=== PATIENT | female | born 1955 | race Caucasian/White ===

== ENCOUNTER 2019-10-31 18:11 | Inpatient (IN) ==
--- NOTE | 2019-10-31 18:32 | Emergency Department Note ---
History of Present Illness General Chief complaint: Illness Stated complaint: NAUSEA, VOMITING, FEVER Source: patient History of Present Illness Provider complaint: Malaise and fever Onset (ago): day(s) Location: head Severity: moderate Pain Consistency: + intermittent Current Pain Intensity: 10 (T-max 102.4) Quality: + other (Fatigue) Relieved By: + none Associated symptoms: + cough (Mild), + fever/chills, + malaise, + nausea/vomiting and + shortness of breath; no chest pain This is a 64-year-old female brought in by EMS for evaluation of illness for the past 2 days. She has been feeling fatigued and malaise with fevers. Her temperature was 102.4 just prior to arrival. She does complain of some shortness of breath and has had a mild cough. She states that she does smoke. She denies any known exposure to COVID-19. She denies any loss of smell or taste. She has had some nausea and vomiting of the past 2 days but denies abdominal pain or diarrhea. She denies any chest discomfort or pain. She did get Tylenol and normal saline IV prior to arrival via the ambulance. Home Medications Home Medications Medication Instructions Recorded Confirmed Type lisinopril 20 mg PO QAM 10/31/19 10/31/19 History metformin 1,000 mg PO BID 10/31/19 10/31/19 History rosuvastatin 40 mg PO QAM 10/31/19 10/31/19 History semaglutide [Ozempic] 0 mg SUBCUT FR 10/31/19 10/31/19 History warfarin 3 mg PO UD 10/31/19 10/31/19 History Allergies Allergy/AdvReac Type Severity Reaction Status Date / Time atorvastatin Allergy Unknown SEVERE Verified 10/31/19 21:12 MUSCLE PAIN Past Med/Surg History Medical History (Updated 10/31/19 @ 23:40 by Ander Longo MD) High cholesterol Hypertension Stroke Social History (Updated 10/31/19 @ 18:30 by Ander Longo MD) Smoking Status: Current every day smoker Tobacco Type: Cigarettes Cigarettes Per Day: 1 PPD; Second Hand Exposure: No; Do You Dip or Chew Tobacco: No; Tobacco Cessation Education Requested by Patient: No Hx Alcohol Use: Yes Alcohol type: beer Hx Substance Use: No Preferred Language: Haitian Communication Ability: Effective Pocket Builder Required: No Beliefs That Will Affect Care: None Current Living Situation: Spouse Other Information That Helps Us Care for You: No Feels Safe at Home: Yes Safety Concerns: Feels Safe At This Time Review of Systems See HPI for pertinent positives & negatives. and A total of 10 systems reviewed and were otherwise negative Physical Exam Vital Signs Vital Signs - 24 hr 10/31/19 18:12 10/31/19 19:00 10/31/19 19:01 Temperature 39.4 C H Temperature Source Rectal Pulse Rate 116 H 120 H 120 H Pulse Rate from SpO2 Sensor 121 H 121 H Pulse Rhythm Regular Pulse Strength Normal Respiratory Rate 25 H 29 H 22 Respiratory Effort / Characteristics Non-Labored Respiratory Depth Normal Respiratory Pattern Regular Blood Pressure 164/79 H 110/67 Blood Pressure Mean 107 80 Blood Pressure Position Lying Pulse Oximetry 97 96 96 Oxygen Delivery Method Nasal Cannula Oxygen Flow Rate 2 Sepsis Recent Fever Within 48 Hours Yes Sepsis New/Unexplained Change in Mental Status Yes Sepsis Action Taken by Nursing Physician Notified 10/31/19 19:15 10/31/19 19:18 10/31/19 19:24 Temperature Temperature Source Pulse Rate 117 H 119 H Pulse Rate from SpO2 Sensor 117 H 119 H Pulse Rhythm Pulse Strength Respiratory Rate 31 H 19 Respiratory Effort / Characteristics Non-Labored Respiratory Depth Respiratory Pattern Blood Pressure 122/74 Blood Pressure Mean 83 Blood Pressure Position Pulse Oximetry 96 96 Oxygen Delivery Method Oxygen Flow Rate Sepsis Recent Fever Within 48 Hours Sepsis New/Unexplained Change in Mental Status Sepsis Action Taken by Nursing 10/31/19 19:30 10/31/19 19:31 10/31/19 19:45 Temperature Temperature Source Pulse Rate 113 H Pulse Rate from SpO2 Sensor 116 H 116 H 113 H Pulse Rhythm Pulse Strength Respiratory Rate 23 23 29 H Respiratory Effort / Characteristics Respiratory Depth Respiratory Pattern Blood Pressure 141/79 H 147/76 H Blood Pressure Mean 85 100 Blood Pressure Position Pulse Oximetry 95 97 95 Oxygen Delivery Method Oxygen Flow Rate Sepsis Recent Fever Within 48 Hours Sepsis New/Unexplained Change in Mental Status Sepsis Action Taken by Nursing 10/31/19 19:46 10/31/19 20:00 10/31/19 20:01 Temperature Temperature Source Pulse Rate 112 H 110 H 108 H Pulse Rate from SpO2 Sensor 113 H 111 H 108 H Pulse Rhythm Pulse Strength Respiratory Rate 18 17 28 H Respiratory Effort / Characteristics Respiratory Depth Respiratory Pattern Blood Pressure 114/63 Blood Pressure Mean 96 Blood Pressure Position Pulse Oximetry 97 95 96 Oxygen Delivery Method Oxygen Flow Rate Sepsis Recent Fever Within 48 Hours Sepsis New/Unexplained Change in Mental Status Sepsis Action Taken by Nursing 10/31/19 20:15 10/31/19 20:16 10/31/19 20:30 Temperature Temperature Source Pulse Rate 108 H 109 H 106 H Pulse Rate from SpO2 Sensor 109 H 109 H 106 H Pulse Rhythm Pulse Strength Respiratory Rate 22 25 H 19 Respiratory Effort / Characteristics Respiratory Depth Respiratory Pattern Blood Pressure 101/66 100/66 Blood Pressure Mean 72 79 Blood Pressure Position Pulse Oximetry 95 94 95 Oxygen Delivery Method Oxygen Flow Rate Sepsis Recent Fever Within 48 Hours Sepsis New/Unexplained Change in Mental Status Sepsis Action Taken by Nursing 10/31/19 20:31 Temperature Temperature Source Pulse Rate 105 H Pulse Rate from SpO2 Sensor 108 H Pulse Rhythm Pulse Strength Respiratory Rate 20 Respiratory Effort / Characteristics Respiratory Depth Respiratory Pattern Blood Pressure Blood Pressure Mean Blood Pressure Position Pulse Oximetry 94 Oxygen Delivery Method Oxygen Flow Rate Sepsis Recent Fever Within 48 Hours Sepsis New/Unexplained Change in Mental Status Sepsis Action Taken by Nursing Constitutional: Vital signs reviewed. Eyes: Pupils are equal round reactive to light. Conjunctiva are noninjected. ENT: Pharynx is clear without erythema or exudate. Mucous membranes are dry. Neck supple without meningeal signs. Respiratory: Clear to auscultation bilaterally. Breath sounds are equal bilaterally. Cardiovascular: Tachycardic. Heart rate 120. GI: Soft, nondistended and nontender. Bowel sounds are present. Musculoskeletal: No peripheral edema. No lower extremity tenderness. Integumentary: No cyanosis. or jaundice. Neurological: The patient is awake and alert. Psychiatric: Somewhat anxious. Course Administered Medications Daptomycin 350 mg/ Syringe 7 mls @ 3.5 mls/min IV Q24H RJ; Protocol Stop: 11/02/19 22:29 Last Admin: 10/31/19 22:51 Dose: 3.5 mls/min Documented by: [id number] Insulin Human Regular 250 (units/ Sodium Chloride) 250 mls @ 2.1 mls/hr IV .Q24H RJ; Protocol Stop: 11/30/19 22:44 Last Admin: 10/31/19 22:49 Dose: 2.1 units/hr, 2.1 mls/hr Documented by: [id number] Cosigned by: [id number] Potassium Chloride/Sodium Chloride (1/2 Nss + 20meq Kcl 1000ml) 20 meq in 1,000 mls @ 200 mls/hr IV .Q5H RJ Stop: 11/30/19 23:29 Last Admin: 10/31/19 23:28 Dose: 200 mls/hr Documented by: [id number] Miscellaneous (Pending D5 1/2ns+20meq Kcl Ivf) 1 ea N/A Q2H RJ Stop: 11/30/19 21:50 Last Admin: 10/31/19 22:19 Dose: Not Given Documented by: [id number] Discontinued Medications Daptomycin 325 mg/ Syringe 6.5 mls @ 3.25 mls/min IV 1930 ONE; Protocol Stop: 10/31/19 19:31 Last Admin: 10/31/19 20:13 Dose: 3.25 mls/min Documented by: [id number] Piperacillin Sod/Tazobactam (Sod 4.5 gm/ Dextrose) 120 mls @ 200 mls/hr IV NOW STA; Protocol Stop: 10/31/19 19:43 Last Infusion: 10/31/19 22:14 Dose: 0 mls/hr Documented by: [id number] Admin: 10/31/19 20:12 Dose: 200 mls/hr Documented by: [id number] Sodium Chloride (Nss 1000ml) 1,000 mls @ 200 mls/hr IV .Q5H RJ Stop: 11/30/19 19:44 Last Admin: 10/31/19 22:14 Dose: Not Given Documented by: [id number] Sodium Chloride (Nss 1000ml) 1,000 mls @ 200 mls/hr IV .Q5H RJ Stop: 11/30/19 21:50 Last Admin: 10/31/19 23:25 Dose: Not Given Documented by: [id number] Insulin Human Regular 4 units/ (Syringe) 4 mls @ 0 mls/min IV ONE ONE Stop: 10/31/19 22:46 Last Admin: 10/31/19 22:54 Dose: 4 mls/min Documented by: [id number] Cosigned by: [id number] Miscellaneous (Pending 1/2nss+20meq Kcl Ivf) 1 ea N/A Q2H RJ Stop: 11/30/19 21:50 Last Admin: 10/31/19 22:19 Dose: Not Given Documented by: [id number] Miscellaneous (Pending Order) 1 ea N/A Q4H RJ Stop: 11/30/19 22:43 Last Admin: 10/31/19 23:24 Dose: Not Given Documented by: [id number] Warfarin Sodium (Warfarin Sod 5 Mg Tab) 5 mg PO NOW ONE Stop: 10/31/19 21:52 Last Admin: 10/31/19 22:47 Dose: 5 mg Documented by: [id number] Critical Care Time Critical Care Time: Yes Total Critical Care Time: 40 I have personally spent approximately 40 minutes of critical care time in the direct management of this patient. This includes bedside care, interpretation of diagnostic studies, and testing, discussion with consultants, patient, and family members, and other required patient management activities. These minutes are in excess of all separately billable procedures. Medical Decision Making Differential Diagnosis Sepsis, bacteremia, pneumonia, COVID-19, influenza, UTI Medical Records Attestation: I reviewed the patient's medical records. I did perform a limited focused review of portions of the patient's old chart on the electronic medical record. The patient has had no recent pertinent visits to this hospital. Home Medications Current Medication List: was personally reviewed by me Laboratory Data Attestation: I reviewed the patient's lab results. Result diagrams: 10/31/19 18:23 10/31/19 22:34 Lab Results 10/31/19 10/31/19 10/31/19 Range/Units 18:23 18:23 18:23 WBC 18.17 H (4.8-10.8) K/uL RBC 4.95 (4.2-5.4) M/uL Hgb 14.7 (12.0-16.0) g/dL Hct 45.3 (37-47) % MCV 91.5 (80-100) fL MCH 29.7 (25-34) pg MCHC 32.5 (32-36) g/dL RDW Std Deviation 47.4 H (36.4-46.3) fL RDW Coeff of Nikki 14.2 (11.5-14.5) % Plt Count 155 (130-400) K/uL MPV 11.3 H (7.4-10.4) fL Immature Gran % (Auto) 0.4 % Neut % (Auto) 83.0 % Lymph % (Auto) 9.5 % Coffey % (Auto) 6.9 % Eos % (Auto) 0.1 % Baso % (Auto) 0.1 % Neut # (Auto) 15.09 H (1.4-6.5) K/uL Lymph # (Auto) 1.72 (1.2-3.4) K/uL Coffey # (Auto) 1.25 H (0.11-0.59) K/uL Eos # (Auto) 0.01 (0-0.5) K/uL Baso # (Auto) 0.02 (0-0.2) K/uL Immature Gran # (Auto) 0.08 H (0.00-0.02) K/uL PT 16.1 H (9.0-12.0) Seconds INR 1.6 H (0.9-1.1) APTT 26.3 (21.0-31.0) Seconds PTT Ratio 0.9 VBG pH (7.36-7.41) VBG pCO2 (38-50) mmHg VBG pO2 mmHg VBG HCO3 mmol/L VBG O2 Saturation % VBG Base Excess mEq/L Barometric Pressure mm/Hg Sodium 135 L (136-145) mmol/L Potassium 3.6 (3.5-5.1) mmol/L Chloride 102 (98-107) mmol/L Carbon Dioxide 19 L (21-32) mmol/L Anion Gap 14.0 H (3-11) BUN 11 (7-18) mg/dl Creatinine 1.30 H (0.6-1.2) mg/dl Est Cr Clr Drug Dosing 45.5 ml/min Est GFR ( Amer) 49.5 Est GFR (Non-Af Amer) 42.7 BUN/Creatinine Ratio 8.2 L (10-20) Glucose 377 H* (70-99) mg/dl Lactate (0.4-2.0) mmol/L Calcium 8.9 (8.5-10.1) mg/dl Magnesium 1.8 (1.8-2.4) mg/dl Total Bilirubin 0.8 (0.2-1) mg/dl AST 16 (15-37) U/L ALT 25 (12-78) U/L Alkaline Phosphatase 141 H (45-117) U/L Troponin I < 0.015 (0-0.045) ng/ml Total Protein 7.8 (6.4-8.2) gm/dl Albumin 3.1 L (3.4-5.0) gm/dl Globulin 4.7 H (2.5-4.0) gm/dl Albumin/Globulin Ratio 0.7 L (0.9-2) Beta-Hydroxybutyric Acd 7.42 H (0.2-2.81) mg/dl Urine Color Urine Appearance (Clear) Urine pH (4.5-7.5) Ur Specific [place] (1.000-1.030) Urine Protein (Negative) Urine Glucose (UA) (Negative) Urine Ketones (Negative) Urine Blood (Negative) Urine Nitrite (Negative) Urine Bilirubin (Negative) Urine Urobilinogen (Negative) Ur Leukocyte Esterase (Negative) Urine WBC (Auto) (0-5) /hpf Urine RBC (Auto) (0-4) /hpf U Hyaline Cast (Auto) (0-5) /lpf U Epithel Cells (Auto) (0-5) /lpf Urine Bacteria (Auto) (Negative) Ur Renal Epithelial Cell Granular Casts (0) /lpf COVID-19 Eval Order COVID-19 PCR (Negative) Influenza Type A (PCR) (Neg) Influenza Type B (PCR) (Neg) 10/31/19 10/31/19 10/31/19 Range/Units 18:27 18:38 19:30 WBC (4.8-10.8) K/uL RBC (4.2-5.4) M/uL Hgb (12.0-16.0) g/dL Hct (37-47) % MCV (80-100) fL MCH (25-34) pg MCHC (32-36) g/dL RDW Std Deviation (36.4-46.3) fL RDW Coeff of Nikki (11.5-14.5) % Plt Count (130-400) K/uL MPV (7.4-10.4) fL Immature Gran % (Auto) % Neut % (Auto) % Lymph % (Auto) % Coffey % (Auto) % Eos % (Auto) % Baso % (Auto) % Neut # (Auto) (1.4-6.5) K/uL Lymph # (Auto) (1.2-3.4) K/uL Coffey # (Auto) (0.11-0.59) K/uL Eos # (Auto) (0-0.5) K/uL Baso # (Auto) (0-0.2) K/uL Immature Gran # (Auto) (0.00-0.02) K/uL PT (9.0-12.0) Seconds INR (0.9-1.1) APTT (21.0-31.0) Seconds PTT Ratio VBG pH (7.36-7.41) VBG pCO2 (38-50) mmHg VBG pO2 mmHg VBG HCO3 mmol/L VBG O2 Saturation % VBG Base Excess mEq/L Barometric Pressure mm/Hg Sodium (136-145) mmol/L Potassium (3.5-5.1) mmol/L Chloride (98-107) mmol/L Carbon Dioxide (21-32) mmol/L Anion Gap (3-11) BUN (7-18) mg/dl Creatinine (0.6-1.2) mg/dl Est Cr Clr Drug Dosing ml/min Est GFR ( Amer) Est GFR (Non-Af Amer) BUN/Creatinine Ratio (10-20) Glucose (70-99) mg/dl Lactate 5.0 H* (0.4-2.0) mmol/L Calcium (8.5-10.1) mg/dl Magnesium (1.8-2.4) mg/dl Total Bilirubin (0.2-1) mg/dl AST (15-37) U/L ALT (12-78) U/L Alkaline Phosphatase (45-117) U/L Troponin I (0-0.045) ng/ml Total Protein (6.4-8.2) gm/dl Albumin (3.4-5.0) gm/dl Globulin (2.5-4.0) gm/dl Albumin/Globulin Ratio (0.9-2) Beta-Hydroxybutyric Acd (0.2-2.81) mg/dl Urine Color Dark Yellow Urine Appearance Turbid A (Clear) Urine pH 5.0 (4.5-7.5) Ur Specific [place] 1.024 (1.000-1.030) Urine Protein 3+ H (Negative) Urine Glucose (UA) 3+ H (Negative) Urine Ketones 1+ H (Negative) Urine Blood 3+ H (Negative) Urine Nitrite Positive A (Negative) Urine Bilirubin Negative (Negative) Urine Urobilinogen Negative (Negative) Ur Leukocyte Esterase 1+ H (Negative) Urine WBC (Auto) >30 H (0-5) /hpf Urine RBC (Auto) 5-10 H (0-4) /hpf U Hyaline Cast (Auto) 5-10 H (0-5) /lpf U Epithel Cells (Auto) >30 H (0-5) /lpf Urine Bacteria (Auto) 4+ H (Negative) Ur Renal Epithelial Cell Not Reportable Granular Casts 1-5 H (0) /lpf COVID-19 Eval Order COVID-19 PCR (Negative) Influenza Type A (PCR) Neg for Influ A (Neg) Influenza Type B (PCR) Neg for Influ B (Neg) 10/31/19 10/31/19 10/31/19 Range/Units 19:42 19:42 20:27 WBC (4.8-10.8) K/uL RBC (4.2-5.4) M/uL Hgb (12.0-16.0) g/dL Hct (37-47) % MCV (80-100) fL MCH (25-34) pg MCHC (32-36) g/dL RDW Std Deviation (36.4-46.3) fL RDW Coeff of Nikki (11.5-14.5) % Plt Count (130-400) K/uL MPV (7.4-10.4) fL Immature Gran % (Auto) % Neut % (Auto) % Lymph % (Auto) % Coffey % (Auto) % Eos % (Auto) % Baso % (Auto) % Neut # (Auto) (1.4-6.5) K/uL Lymph # (Auto) (1.2-3.4) K/uL Coffey # (Auto) (0.11-0.59) K/uL Eos # (Auto) (0-0.5) K/uL Baso # (Auto) (0-0.2) K/uL Immature Gran # (Auto) (0.00-0.02) K/uL PT (9.0-12.0) Seconds INR (0.9-1.1) APTT (21.0-31.0) Seconds PTT Ratio VBG pH 7.42 H (7.36-7.41) VBG pCO2 32 L (38-50) mmHg VBG pO2 53 mmHg VBG HCO3 20 mmol/L VBG O2 Saturation 85.7 % VBG Base Excess -3.4 mEq/L Barometric Pressure 744.3 mm/Hg Sodium (136-145) mmol/L Potassium (3.5-5.1) mmol/L Chloride (98-107) mmol/L Carbon Dioxide (21-32) mmol/L Anion Gap (3-11) BUN (7-18) mg/dl Creatinine (0.6-1.2) mg/dl Est Cr Clr Drug Dosing ml/min Est GFR ( Amer) Est GFR (Non-Af Amer) BUN/Creatinine Ratio (10-20) Glucose (70-99) mg/dl Lactate (0.4-2.0) mmol/L Calcium (8.5-10.1) mg/dl Magnesium (1.8-2.4) mg/dl Total Bilirubin (0.2-1) mg/dl AST (15-37) U/L ALT (12-78) U/L Alkaline Phosphatase (45-117) U/L Troponin I (0-0.045) ng/ml Total Protein (6.4-8.2) gm/dl Albumin (3.4-5.0) gm/dl Globulin (2.5-4.0) gm/dl Albumin/Globulin Ratio (0.9-2) Beta-Hydroxybutyric Acd (0.2-2.81) mg/dl Urine Color Urine Appearance (Clear) Urine pH (4.5-7.5) Ur Specific [place] (1.000-1.030) Urine Protein (Negative) Urine Glucose (UA) (Negative) Urine Ketones (Negative) Urine Blood (Negative) Urine Nitrite (Negative) Urine Bilirubin (Negative) Urine Urobilinogen (Negative) Ur Leukocyte Esterase (Negative) Urine WBC (Auto) (0-5) /hpf Urine RBC (Auto) (0-4) /hpf U Hyaline Cast (Auto) (0-5) /lpf U Epithel Cells (Auto) (0-5) /lpf Urine Bacteria (Auto) (Negative) Ur Renal Epithelial Cell Granular Casts (0) /lpf COVID-19 Eval Order Covid19 Done at [facility] COVID-19 PCR NEGATIVE (Negative) Influenza Type A (PCR) (Neg) Influenza Type B (PCR) (Neg) 10/31/19 Range/Units 20:27 WBC (4.8-10.8) K/uL RBC (4.2-5.4) M/uL Hgb (12.0-16.0) g/dL Hct (37-47) % MCV (80-100) fL MCH (25-34) pg MCHC (32-36) g/dL RDW Std Deviation (36.4-46.3) fL RDW Coeff of Nikki (11.5-14.5) % Plt Count (130-400) K/uL MPV (7.4-10.4) fL Immature Gran % (Auto) % Neut % (Auto) % Lymph % (Auto) % Coffey % (Auto) % Eos % (Auto) % Baso % (Auto) % Neut # (Auto) (1.4-6.5) K/uL Lymph # (Auto) (1.2-3.4) K/uL [place]y # (Auto) (0.11-0.59) K/uL Eos # (Auto) (0-0.5) K/uL Baso # (Auto) (0-0.2) K/uL Immature Gran # (Auto) (0.00-0.02) K/uL PT (9.0-12.0) Seconds INR (0.9-1.1) APTT (21.0-31.0) Seconds PTT Ratio VBG pH (7.36-7.41) VBG pCO2 (38-50) mmHg VBG pO2 mmHg VBG HCO3 mmol/L VBG O2 Saturation % VBG Base Excess mEq/L Barometric Pressure mm/Hg Sodium (136-145) mmol/L Potassium (3.5-5.1) mmol/L Chloride (98-107) mmol/L Carbon Dioxide (21-32) mmol/L Anion Gap (3-11) BUN (7-18) mg/dl Creatinine (0.6-1.2) mg/dl Est Cr Clr Drug Dosing ml/min Est GFR ( Amer) Est GFR (Non-Af Amer) BUN/Creatinine Ratio (10-20) Glucose (70-99) mg/dl Lactate 1.5 (0.4-2.0) mmol/L Calcium (8.5-10.1) mg/dl Magnesium (1.8-2.4) mg/dl Total Bilirubin (0.2-1) mg/dl AST (15-37) U/L ALT (12-78) U/L Alkaline Phosphatase (45-117) U/L Troponin I (0-0.045) ng/ml Total Protein (6.4-8.2) gm/dl Albumin (3.4-5.0) gm/dl Globulin (2.5-4.0) gm/dl Albumin/Globulin Ratio (0.9-2) Beta-Hydroxybutyric Acd (0.2-2.81) mg/dl Urine Color Urine Appearance (Clear) Urine pH (4.5-7.5) Ur Specific [place] (1.000-1.030) Urine Protein (Negative) Urine Glucose (UA) (Negative) Urine Ketones (Negative) Urine Blood (Negative) Urine Nitrite (Negative) Urine Bilirubin (Negative) Urine Urobilinogen (Negative) Ur Leukocyte Esterase (Negative) Urine WBC (Auto) (0-5) /hpf Urine RBC (Auto) (0-4) /hpf U Hyaline Cast (Auto) (0-5) /lpf U Epithel Cells (Auto) (0-5) /lpf Urine Bacteria (Auto) (Negative) Ur Renal Epithelial Cell Granular Casts (0) /lpf COVID-19 Eval Order COVID-19 PCR (Negative) Influenza Type A (PCR) (Neg) Influenza Type B (PCR) (Neg) Imaging Data Radiologist's Impression: XR chest 1V portable HISTORY: SEPSIS COMPARISON: Chest 08/26/2006. FINDINGS: The lungs are clear. Cardiac silhouette is normal in size. No pleural effusions. No pneumothorax. IMPRESSION: No acute process. ACT 112: Negative or not required by law. Electronically signed by: Joel Waters M.D. 10/31/2019 7:14 PM Dictated: 10/31/191913 Transcribed: 10/31/191913 ECG Data Attestation: I personally reviewed and interpreted this ECG as follows: Indication: + tachycardia Rate (beats per minute): 125 Rhythm: + sinus tachycardia ECG ST segments: no ST elevation ECG Findings: + Q waves (Inferior); no PVCs Blood Pressure Blood Pressure Findings: Elevated blood pressure Blood Pressure Disposition: Referred to patients primary care provider MDM Narrative I did provide prehospital medical command for the patient. I did order Tylenol 650 p.o. and a liter of normal saline IV. She had a blood pressure of 100 sys tolic prior to arrival. I did call a sepsis alert. She was placed in respiratory isolation. Her COVID-19 test was obtained. I did evaluate the patient as noted above. IV access was established. She is hypertensive here. I did place an order for continuous cardiac monitoring. The monitor showed sinus tachycardia with a rate of 120. I did order and personally review the patient's 12-lead EKG as described above. He has sinus tachycardia without acute ischemia. I did order and personally reviewed the images of the patient's chest x-ray as described above. X-ray is negative for pneumonia. I did order a urine analysis. He does have significant signs of a UTI. Blood cultures were obtained. I did order IV Zosyn and IV daptomycin. I did order and review the patient's blood work as noted in the electronic medical record. Her white blood cell count is elevated. Potassium is 3.3. Lactate is over 5. Glucose is 425. I did order additional IV fluids with normal saline. VBG does not show acidosis. There is a mild anion gap. I did reassess the patient several times. Her blood pressure remained stable. COVID-19 testing is negative and influenza testing is negative. I did discuss the case with the hospitalist and rifle case repairer. Impression & Plan Sepsis, Acute UTI, Acute hyperglycemia Discharge Plan Visit Data Chief Complaint: Illness Stated Complaint: NAUSEA, VOMITING, FEVER ED Provider: Ander Longo Discharge Problem: Sepsis, Acute UTI, Acute hyperglycemia Patient Disposition: Admitted As Inpatient Discharge Instructions Interventions: ED Discharge Assessment Last Done: 10/31/19 21:27
[2019-10-31 18:45] LABS: Basophils # (auto) 0.02 K/uL (0-0.2); Basophils % (auto) 0.1 %; Eosinophils # (auto) 0.01 K/uL (0-0.5); Eosinophils % (auto) 0.1 %; Hematocrit (blood only) 45.3 % (37-47); Hemoglobin 14.7 g/dL (12.0-16.0); Immature Granulocytes # (auto) 0.08 K/uL (0.00-0.02); Immature Granulocytes % (auto) 0.4 %; Lymphocytes # (auto) 1.72 K/uL (1.2-3.4); Lymphocytes % (auto) 9.5 %; Mean Corpuscular Hemoglobin 29.7 pg (25-34); Mean Corpuscular Hgb Conc 32.5 g/dL (32-36); Mean Corpuscular Volume 91.5 fL (80-100); Mean Platelet Volume 11.3 fL (7.4-10.4); Monocytes # (auto) 1.25 K/uL (0.11-0.59); Monocytes % (auto) 6.9 %; Neutrophils # (auto) 15.09 K/uL (1.4-6.5); Platelet Count 155 K/uL (130-400); RDW Coefficient of Variation 14.2 % (11.5-14.5); RDW Standard Deviation 47.4 fL (36.4-46.3); Red Blood Count 4.95 M/uL (4.2-5.4); White Blood Count 18.17 K/uL (4.8-10.8)
[2019-10-31 18:48] LABS: Appearance Urine Turbid (Clear); Bacteria Urine Automated 4+ (Negative); Bilirubin Urine Negative (Negative); Blood Urine 3+ (Negative); Color Urine Dark Yellow; Epithelial Cell Urine Auto >30 /lpf (0-5); Glucose Urine UA 3+ (Negative); Ketones Urine 1+ (Negative); Leukocyte Esterase Urine 1+ (Negative); Nitrite Urine Positive (Negative); Protein Urine 3+ (Negative); Specific Gravity Urine 1.024 (1.000-1.030); Urobilinogen Urine Negative (Negative); WBC Urine Automated >30 /hpf (0-5)
[2019-10-31 18:53] LABS: INR 1.6 (0.9-1.1); Partial Thromboplastin Ratio 0.9; Partial Thromboplastin Time 26.3 Seconds (21.0-31.0); Prothrombin Time 16.1 Seconds (9.0-12.0)
[2019-10-31] MEDS ORDERED: PIPERACILL/TAZOBAC CONSULT ACTIVE PRN (19:08)
[2019-10-31] MEDS ORDERED: PIPERACILLIN/TAZOBACTAM 4.5 GM in DEXTROSE 5% 100 ML IV STA (19:08)
[2019-10-31 19:13] LABS: Alanine Aminotransferase 25 U/L (12-78); Albumin Globulin Ratio 0.7 (0.9-2); Albumin Level 3.1 gm/dl (3.4-5.0); Alkaline Phosphatase 141 U/L (45-117); Aspartate Aminotransferase 16 U/L (15-37); BUN Creatinine Ratio 8.2 (10-20); Bilirubin,Total 0.8 mg/dl (0.2-1); Blood Urea Nitrogen 11 mg/dl (7-18); Calcium 8.9 mg/dl (8.5-10.1); Carbon Dioxide 19 mmol/L (21-32); Chloride 102 mmol/L (98-107); Creatinine Clr Calc Pharmacy 45.5 ml/min; Est GFR (African American) 49.5; Est GFR (Non-African American) 42.7; Globulin 4.7 gm/dl (2.5-4.0); Glucose 377 mg/dl (70-99); Magnesium 1.8 mg/dl (1.8-2.4); Potassium 3.6 mmol/L (3.5-5.1); Sodium 135 mmol/L (136-145); Total Protein 7.8 gm/dl (6.4-8.2); Troponin I < 0.015 ng/ml (0-0.045)
--- NOTE | 2019-10-31 19:16 | XRay Report ---
XR chest 1V portable HISTORY: SEPSIS COMPARISON: Chest 08/26/2006. FINDINGS: The lungs are clear. Cardiac silhouette is normal in size. No pleural effusions. No pneumot horax. IMPRESSION: No acute process. ACT 112: Negative or not required by law. Electronically signed by: Joel Waters M.D. 10/31/2019 7:14 PM
[2019-10-31 19:27] LABS: Beta-Hydroxybutyrate 7.42 mg/dl (0.2-2.81)
[2019-10-31] MEDS ORDERED: DAPTOmycin 325 MG in SYRINGE 0 ML IV ONE (19:30)
[2019-10-31] MEDS ORDERED: SODIUM CHLORIDE 0.9% 1000ML 1,000 ML IV SCH ×2 (19:45→21:51)
[2019-10-31 20:34] LABS: Influenza A virus by PCR Neg for Influ A (Neg); Influenza B virus by PCR Neg for Influ B (Neg)
[2019-10-31 20:40] LABS: Base Excess VBG -3.4 mEq/L; Oxygen Saturation VBG 85.7 %; pH VBG 7.42 (7.36-7.41)
[2019-10-31] MEDS ORDERED: DAPTOMYCIN CONSULT ACTIVE PRN (21:51)
[2019-10-31] MEDS ORDERED: PENDING 1/2NSS+20mEq KCL IVF SCH (21:51)
[2019-10-31] MEDS ORDERED: DKA GOAL RANGE 150-250 mg/dl ONE (21:51)
[2019-10-31] MEDS ORDERED: INSULIN ASPART 100 UNITS/ML 3 ML PEN SQ SCH (21:51)
[2019-10-31] MEDS ORDERED: ONDANSETRON INJ 2 MG/ML 2 ML VIAL IV PRN (21:51)
[2019-10-31] MEDS ORDERED: NITROGLYCERIN SL 0.4 MG/TAB TAB SL PRN (21:51)
[2019-10-31] MEDS ORDERED: WARFARIN SOD 5 MG TAB PO ONE (21:51)
[2019-10-31] MEDS ORDERED: PHARMACY GLYCEMIC MGMT CONSULT PRN (21:59)
[2019-10-31] MEDS: PENDING D5 1/2NS+20mEq KCL IVF SCH ×2 (22:19→23:45)
[2019-10-31] MEDS ORDERED: DAPTOmycin 350 MG in SYRINGE 0 ML IV SCH (22:30)
[2019-10-31] MEDS ORDERED: INSULIN HUMAN REGULAR IV BOLUS 4 UNITS in SYRINGE 0 ML IV ONE (22:45)
[2019-10-31] MEDS: INSULIN REGULAR 250 UNITS in SODIUM CHLORIDE 0.9% 247.5 ML IV SCH (22:49)
[2019-10-31 23:09] LABS: BUN Creatinine Ratio 11.3 (10-20); Calcium 8.5 mg/dl (8.5-10.1); Creatinine Clr Calc Pharmacy 47.6 ml/min; Est GFR (African American) 54.5; Est GFR (Non-African American) 47.1; Phosphorus 2.6 mg/dl (2.5-4.9); Potassium 3.3 mmol/L (3.5-5.1)
[2019-10-31] MEDS: SODIUM CHLOR 0.45% + 20MEQ KCL 20 MEQ/1,000 ML BAG IV SCH (23:28)
[2019-10-31 23:33] LABS: Beta-Hydroxybutyrate 4.91 mg/dl (0.2-2.81)
--- NOTE | 2019-11-01 01:12 | History and Physical Report ---
DATE OF ADMISSION: 10/31/2019 CHIEF COMPLAINT: Severe sepsis. HISTORY OF PRESENT ILLNESS: This is a 64-year-old female with past medical history significant for type 2 diabetes, hyperlipidemia, diabetes mellitus with peripheral angiopathy, atrial septal defect, mitral valve disease, history of CVA, hypertension, degenerative disc disease, osteoarthritis involving multiple joints, factor V Leiden deficiency, long-term use of anticoagulant therapy, history of tobacco use disorder. 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 Lives with her , wheelchair bound. Comes because of not feeling well since last 2 days. She is having generalized body aches, low-grade fever for the last 2 days and she has some mild cough and some shortness of breath . Hx of smoking. Today, she tried to eat pizza and she vomited .In the ER and she was tachycardic [place] [id number]. ABG was okay. Sugars were 377 with anion gap of 14, CO2 of 19, creatinine of 1.3. Lactate was 5 when she came in. With the fluid resuscitation, repeat lactate was 1.5. Urine was positive for nitrite and 4+ bacteria. Influenza A and B negative and COVID-19 PCR is negative. Chest x-ray, no acute process. The patient is somewhat ill appearing. Says she is not feeling good, but denies any headache, denies any blurred vision. No earache, no runny nose. Denies any sore throat. Denies any loss of sense of smell or taste. Denies any chest pain. Currently no shortness of breath. Currently, no nausea, no vomiting, no abdominal pain. Normal bowel and bladder movements. She says she has some mild burning micturition. No rash anywhere. ALLERGIES: ATORVASTATIN. PAST MEDICAL HISTORY: As mentioned above. PAST SURGICAL HISTORY: , ligation of the oviducts, catheter placement in vena cava. MEDICATIONS: The patient is on Crestor 40 mg p.o. daily, lisinopril 20 mg p.o. daily, metformin 1000 mg p.o. b.i.d., Coumadin 3 to 6 mg as directed by Coumadin clinic, semaglutide 0.5 mg under skin once a week, hydrocodone/acetaminophen 5/325 mg 1-2 tablets every 6 hours p.r.n. FAMILY HISTORY: Significant for maternal grandmother had breast cancer, maternal grandfather had stroke, paternal grandfather had stroke, mother has diabetes. SOCIAL HISTORY: , lives with her . Smokes average 1 pack a day for 20 years. Alcohol few drinks per month. No drug use. REVIEW OF SYSTEMS: As per HPI. Rest of review of systems negative. PHYSICAL EXAMINATION: GENERAL: The patient is of moderate build, not in acute distress. VITAL SIGNS: T-max 39.4, pulse ranging from 110 to 98, respiratory rate 18, blood pressure 106/68, oxygen 93% on room air. HEENT: Pupils equal, round, reactive to light. Oral mucosa dry. NECK: No JVD, no neck masses seen. CARDIOVASCULAR: S1, S2 heard. Tachycardia. No murmurs. RESPIRATORY SYSTEM: Normal AP diameter. No accessory muscle use. No wheezing, no crackles. ABDOMEN: Soft, bowel sounds present, nontender. No distention. CENTRAL NERVOUS SYSTEM: Alert and oriented. No facial droop. Speech is clear. Left-sided weakness present. EXTREMITIES: No edema, no erythema. LABORATORY DATA: WBC 18.17, hemoglobin 14.7, hematocrit 45.3, platelets 155. PT 16.1, INR 1.6, APTT 26.3. Venous blood gas pH of 7.42, pCO2 of 32, pO2 of 53, bicarbonate 20, oxygen saturation 85.7%. Sodium 135, potassium 3.6, chloride 102, bicarbonate 19, anion gap 14, BUN 11, creatinine 1.3, serum glucose 377. Lactate was 5 when she came, repeat is 1.5, calcium 8.9, magnesium 1.8, total bilirubin 0.8, AST 16, ALT 15, alkaline phosphatase 141. Troponin I less than 0.015. Beta hydroxybutyric acid 7.42. Urinalysis, +3 protein, +3 glucose, +1 ketones, +3 blood, positive urine nitrite, positive leukocyte esterase +1, urine bacteria +4. COVID-19 PCR negative. Influenza A and B PCR negative. IMAGING DATA: Chest x-ray, no acute process. EKG: Sinus tachycardia at a rate of 125, no acute ST changes seen. ASSESSMENT AND PLAN: This is a 64-year-old female who presents with sepsis. 1. Severe sepsis secondary to urinary tract infection with tachycardia, temperature spike, elevated white count, feeling sick, and hyperglycemia. Urinalysis positive. Received aggressive fluids in the ER. Will continue with IV normal saline 200 mL per hour. Follow the cultures. Empiric antibiotics of Zosyn and daptomycin and closely monitor in the tele floor. Repeat lactic acid is normalized at 1.5. Lactic acid was 5 when she came in. 2. Mild diabetic ketoacidosis with elevated sugars and mild anion gap. Started on mild diabetic ketoacidosis protocol. If the sugars improve we will change to Lantus and sliding scale. Monitor the blood sugar closely. 3. History of factor V Leiden deficiency, on Coumadin. INR subtherapeutic is 1.6. We will give Coumadin 5 mg now and follow the PT/INR in the a.m. 4. History of hemiplegia on the left side following the intracerebral hemorrhage in 2006. Mostly wheelchair bound. 5. Tobacco use disorder, needs counseling. 6. Hypertension, on lisinopril, which will be held for now. Monitor the blood pressure. 7. Hyperlipidemia, on Crestor. 8. History of atrial septal defect and mitral valve disease. On Coumadin, getting fluids. Monitor for any volume overload. 9. Deep venous thrombosis prophylaxis, Lovenox until INR is therapeutic. DISPOSITION: Closely monitor in tele floor. Level 1 full code. MTDD
[2019-11-01] MEDS: PENDING D5 1/2NS+20mEq KCL IVF SCH ×2 (01:22→04:18)
[2019-11-01] MEDS: PIPERACILLIN/TAZOBACTAM 3.375 GM in DEXTROSE 5% 100 ML IV SCH ×3 (01:50→17:43)
[2019-11-01 02:40] LABS: INR 1.5 (0.9-1.1); Prothrombin Time 15.6 Seconds (9.0-12.0)
[2019-11-01 02:58] LABS: BUN Creatinine Ratio 12.1 (10-20); Calcium 8.3 mg/dl (8.5-10.1); Creatinine Clr Calc Pharmacy 54.4 ml/min; Est GFR (African American) 64.1; Est GFR (Non-African American) 55.3; Magnesium 1.8 mg/dl (1.8-2.4); Phosphorus 1.7 mg/dl (2.5-4.9); Potassium 3.6 mmol/L (3.5-5.1)
[2019-11-01] MEDS: SODIUM CHLOR 0.45% + 20MEQ KCL 20 MEQ/1,000 ML BAG IV SCH ×3 (04:04→23:25)
[2019-11-01] MEDS: ACETAMINOPHEN 325 MG TAB PO PRN ×3 (04:37→19:01)
[2019-11-01] MEDS: D5W AND 1/2NSS + 20MEQ KCL 20 MEQ/1,000 ML BAG IV SCH ×2 (04:39→12:55)
[2019-11-01 06:20] LABS: Estimated Average Glucose 269 mg/dl
[2019-11-01] MEDS ORDERED: MULTI-VITAMIN INFUSION 10 ML, THIAMINE HCL 100 MG, FOLIC ACID 1 MG in SODIUM CHLORIDE 0... IV ONE (07:10)
[2019-11-01 07:11] LABS: BUN Creatinine Ratio 10.9 (10-20); Calcium 8.3 mg/dl (8.5-10.1); Creatinine Clr Calc Pharmacy 52.9 ml/min; Est GFR (African American) 61.9; Est GFR (Non-African American) 53.5; Magnesium 1.8 mg/dl (1.8-2.4); Potassium 3.1 mmol/L (3.5-5.1)
[2019-11-01 07:12] LABS: Phosphorus 1.8 mg/dl (2.5-4.9)
[2019-11-01] MEDS ORDERED: MAGNESIUM SULFATE / D5W 1 GM/100 ML BAG IV ONE (07:40)
[2019-11-01] MEDS ORDERED: POTASSIUM PHOS 3 MMOL/1 ML INFUSION IV STA (07:40)
[2019-11-01] MEDS ORDERED: POTASSIUM PHOSPHATE 24 MMOL in SODIUM CHLORIDE 0.9% 500 ML IV ONE (07:45)
[2019-11-01] MEDS ORDERED: INSULIN GLARGINE SOLOSTAR 100 UNITS/ML 3 ML PEN SC ONE ×2 (08:00→16:30)
[2019-11-01] MEDS: POT PHOSPHATE MONOBASIC W/ SOD TAB PO SCH ×2 (08:07→12:24)
[2019-11-01] MEDS: INSULIN ASPART 100 UNITS/ML 3 ML PEN SC SCH ×4 (08:46→21:52)
[2019-11-01] MEDS ORDERED: ENOXAPARIN INJ 40 MG/0.4 ML SYR SQ SCH (09:00)
[2019-11-01] MEDS ORDERED: DAPTOmycin 500 MG in SYRINGE 0 ML IV SCH (09:00)
--- NOTE | 2019-11-01 09:25 | Electrocardiogram Report ---
Test Reason : Blood Pressure : / mmHG Vent. Rate : 125 BPM Atrial Rate : 125 BPM P-R Int : 160 ms QRS Dur : 080 ms QT Int : 304 ms P-R-T Axes : 049 -08 051 degrees QTc Int : 438 ms Sinus tachycardia Possible Left atrial enlargement Low voltage QRS Inferior infarct , age undetermined Cannot rule out Anterior infarct , age undetermined Abnormal ECG When compared with ECG of 05-SEP-2006 18:16, Minimal criteria for Anterior infarct are now Present Confirmed by Estiven Vega ([id number]) on 11/01/2019 9:24:33 AM Referred By: REFERRED SELF Confirmed By:Estiven Vega
--- NOTE | 2019-11-01 09:57 | Hospitalist Progress Note ---
Date of Service November 01, 2019 Assessment & Plan (1) Sepsis: (2) Acute UTI: -as per history and physical "This is a 64-year-old female with past medical history significant for type 2 diabetes, hyperlipidemia, diabetes mellitus with peripheral angiopathy, atrial septal defect, mitral valve disease, history of CVA, hypertension, degenerative disc disease, osteoarthritis involving multiple joints, factor V Leiden deficiency, long-term use of anticoagulant therapy, history of tobacco use disorder. 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 Lives with her , wheelchair bound. Comes because of not feeling well since last 2 days. She is having generalized body aches, low-grade fever for the last 2 days and she has some mild cough and some shortness of breath . Hx of smoking. Today, she tried to eat pizza and she vomited .In the ER and she was tachycardic [place] [id number]. ABG was okay. Sugars were 377 with anion gap of 14, CO2 of 19, creatinine of 1.3. Lactate was 5 when she came in. With the fluid resuscitation, repeat lactate was 1.5. Urine was positive for nitrite and 4+ bacteria. Influenza A and B negative and COVID-19 PCR is negative. Chest x-ray, no acute process. The patient is somewhat ill appearing. Says she is not feeling good, but denies any headache, denies any blurred vision. No earache, no runny nose. Denies any sore throat. Denies any loss of sense of smell or taste. Denies any chest pain. Currently no shortness of breath. Currently, no nausea, no vomiting, no abdominal pain. Normal bowel and bladder movements. She says she has some mild burning micturition. No rash anywhere." -Severe sepsis secondary to urinary tract infection with tachycardia, temperature spike, elevated white count, feeling sick, and hyperglycemia. Urinalysis positive. Received aggressive fluids in the ER. Will continue with IV normal saline 200 mL per hour. Follow the cultures. Empiric antibiotics of Zosyn and daptomycin and closely monitor in the tele floor. Repeat lactic acid is normalized at 1.5. Lactic acid was 5 when she came in. History of Hypertension -hold home dose lisinopril during this acute illness, monitor the blood pressures (3) DKA (diabetic ketoacidosis): Electrolyte abnormalities -hold home dose metformin -IV fluids and insulin drip -management with pharmacy glycemic consult -correct serum electrolytes while on IV fluids on insulin drip such as serum phosphorous and serum magnesium and serum potassium levels with electrolyte supplements (4) Chronic anticoagulation: -History of factor V Leiden deficiency, on Coumadin. -History of atrial septal defect and mitral valve disease -admission INR subtherapeutic is 1.6 and then follow up lab as 1.5 -continue Coumadin as 5 mg daily for now, admitting physician also included Lovenox daily for now which seems reasonable until INR goes to 2 to 3 in which then the Lovenox should be stopped History of hemiplegia on the left side following the intracerebral hemorrhage in 2006 -Mostly wheelchair bound. -PT/OT evaluations Dyslipidemia -hold the crestor while on daptomcyin, monitor the creatinine kinase Tobacco use -trauma counsellor on smoking cessation Admission and Anticipated Discharge Date Admission Date: October 31, 2019 Subjective weak, needed assistance from nurse and doctor to help her sit up. despite being on multiple IV fluid and medications, patient breathing on room air and no crackles heard. patient reports pain but nonspecific as to where she has been having pain. she is not grimacing and able to speak in full sentences. patient denies other symptoms Review of Systems Review of Systems: All systems reviewed & are unremarkable except as noted in Subjective Physical Exam Constitutional: cooperative weak, needed assistance from nurse and doctor to help her sit up Eyes: PERRL, conjunctivae normal, anicteric sclerae EOM intact bilaterally ENMT: external ear and nose normal, oropharynx normal Neck: normal visual inspection Respiratory: normal respiratory effort, lungs clear to auscultation Cardiovascular: Rate/Rhythm: regular rate and regular rhythm Gastrointestinal (Abdomen): normal bowel sounds, soft, nontender, no hepatosplenomegaly Musculoskeletal: Head/Neck/Chest: normocephalic and head atraumatic Neurologic: PERRL, EOMI, accommodation nl, no face palsy, no dysarthria Psychiatric: A+Ox3, euthymic affect Results & Data Results & Data ([facility]) Vital Signs (Past 12 Hours) Vital Signs Temp Pulse Resp BP Pulse Ox 11/01/19 08:03 36.8 C 98 H 18 97/63 L 99 11/01/19 06:06 38 C H 11/01/19 04:12 39.0 C H 111 H 20 127/69 93 11/01/19 00:05 36.9 C 101 H 18 108/61 96 (1) Sepsis Sepsis acute organ dysfunction status: unspecified Sepsis type: sepsis due to unspecified organism Qualified Code(s): A41.9 - Sepsis, unspecified organism
[2019-11-01 13:49] LABS: Albumin Globulin Ratio 0.5 (0.9-2); Albumin Level 2.3 gm/dl (3.4-5.0); BUN Creatinine Ratio 10.2 (10-20); Bilirubin,Total 0.6 mg/dl (0.2-1); Calcium 8.2 mg/dl (8.5-10.1); Creatinine Clr Calc Pharmacy 50.1 ml/min; Est GFR (Non-African American) 50.1; Globulin 4.2 gm/dl (2.5-4.0); Magnesium 2.4 mg/dl (1.8-2.4); Potassium 3.6 mmol/L (3.5-5.1); Total Protein 6.5 gm/dl (6.4-8.2)
--- NOTE | 2019-11-01 14:34 | Pharmacy Report ---
Pharmacy Glycemic Short Note 2 - Date of Service November 01, 2019 - Glycemic Short BSG Results (Last 24 hours): 10/31/19 10/31/19 10/31/19 18:23 21:48 22:34 Glucose 377 H* 425 H* POC Glucose 439 H* 10/31/19 10/31/19 11/01/19 22:49 23:59 01:01 Glucose POC Glucose 458 H* 318 H* 271 H 11/01/19 11/01/19 11/01/19 02:01 02:06 03:00 Glucose 242 H POC Glucose 257 H 269 H 11/01/19 11/01/19 11/01/19 04:09 05:01 06:00 Glucose POC Glucose 227 H 250 H 275 H 11/01/19 11/01/19 11/01/19 06:13 07:04 08:06 Glucose 273 H POC Glucose 283 H 300 H 11/01/19 11/01/19 11/01/19 09:18 09:59 11:03 Glucose POC Glucose 372 H* 349 H* 290 H 11/01/19 11/01/19 12:01 12:57 Glucose 254 H POC Glucose 250 H OUTPATIENT ANTIDIABETIC REGIMEN: * Metformin 1gm PO BID * Ozempic SQ weekly * HbA1c: 11% (11/01/19) ASSESSMENT: * Ms Richards is a 64yo diabetic female, admitted with DKA and sepsis. * Patient's labs have resolved today, however, insulin drip continues at a fairly high rate (>4 units/hr) with BSGs steadily in the 250s. * Dextrose has been removed from IVF and goal range has been lowered. * Lantus was initiated this morning. Ideally, insulin drip will be appropriate to D/C by tomorrow morning. PLAN FOR INPATIENT GLYCEMIC CONTROL: * Hold outpatient oral diabetes medications * Basal insulin * Lantus 30 units SQ x1 this morning * Lantus 15 units SQ x1 this evening * Bolus insulin * Per "insulin infusion adjustment calculator". Once drip is discontinued: * NovoLog per scale ACHS or Q6hrs while NPO * Goal Range: Low 110 mg/dL - High 140 mg/dL * Correction Factor: 20 mg/dL/unit * Nutritional / Prandial insulin per carb ratio of 1 unit per 6 grams CHO consumed PLAN FOR DISCHARGE: * pending insulin use during admission
[2019-11-01] MEDS ORDERED: WARFARIN SOD 5 MG TAB PO SCH (16:00)
[2019-11-01 19:54] LABS: Est GFR (African American) 70.5; Est GFR (Non-African American) 60.9; Potassium 3.4 mmol/L (3.5-5.1)
[2019-11-01 19:55] LABS: Albumin Level 2.3 gm/dl (3.4-5.0); BUN Creatinine Ratio 9.6 (10-20); Calcium 8.1 mg/dl (8.5-10.1); Creatinine Clr Calc Pharmacy 58.9 ml/min; Magnesium 2.1 mg/dl (1.8-2.4)
[2019-11-01 19:59] LABS: Albumin Globulin Ratio 0.6 (0.9-2); Bilirubin,Total 0.6 mg/dl (0.2-1); Globulin 4.1 gm/dl (2.5-4.0); Phosphorus 2.8 mg/dl (2.5-4.9); Total Protein 6.4 gm/dl (6.4-8.2)
[2019-11-01] MEDS ORDERED: DAPTOmycin 325 MG in SYRINGE 0 ML IV SCH (22:00)
[2019-11-02] MEDS: PIPERACILLIN/TAZOBACTAM 3.375 GM in DEXTROSE 5% 100 ML IV SCH ×2 (01:41→10:27)
[2019-11-02 06:17] LABS: INR 2.5 (0.9-1.1); Prothrombin Time 25.1 Seconds (9.0-12.0)
[2019-11-02 06:19] LABS: Basophils # (auto) 0.01 K/uL (0-0.2); Basophils % (auto) 0.1 %; Eosinophils # (auto) 0.15 K/uL (0-0.5); Eosinophils % (auto) 1.4 %; Hematocrit (blood only) 35.3 % (37-47); Hemoglobin 11.6 g/dL (12.0-16.0); Immature Granulocytes # (auto) 0.02 K/uL (0.00-0.02); Immature Granulocytes % (auto) 0.2 %; Lymphocytes # (auto) 2.02 K/uL (1.2-3.4); Lymphocytes % (auto) 18.8 %; Mean Corpuscular Hemoglobin 29.7 pg (25-34); Mean Corpuscular Hgb Conc 32.9 g/dL (32-36); Mean Corpuscular Volume 90.3 fL (80-100); Mean Platelet Volume 10.6 fL (7.4-10.4); Monocytes # (auto) 0.69 K/uL (0.11-0.59); Monocytes % (auto) 6.4 %; Neutrophils # (auto) 7.87 K/uL (1.4-6.5); Neutrophils % (auto) 73.1 %; Platelet Count 118 K/uL (130-400); RDW Coefficient of Variation 14.4 % (11.5-14.5); RDW Standard Deviation 47.9 fL (36.4-46.3); Red Blood Count 3.91 M/uL (4.2-5.4); White Blood Count 10.76 K/uL (4.8-10.8)
[2019-11-02 06:34] LABS: Albumin Level 2.2 gm/dl (3.4-5.0); Calcium 8.3 mg/dl (8.5-10.1); Creatinine Clr Calc Pharmacy 59.3 ml/min; Est GFR (African American) 70.5; Est GFR (Non-African American) 60.9; Potassium 3.6 mmol/L (3.5-5.1)
[2019-11-02 06:37] LABS: Albumin Globulin Ratio 0.6 (0.9-2); Bilirubin,Total 0.6 mg/dl (0.2-1); Total Protein 6.2 gm/dl (6.4-8.2)
[2019-11-02] MEDS: INSULIN REGULAR 250 UNITS in SODIUM CHLORIDE 0.9% 247.5 ML IV SCH (06:37)
[2019-11-02] MEDS ORDERED: ACETAMINOPHEN 325 MG TAB PO PRN (07:08)
[2019-11-02] MEDS ORDERED: GLUCOSE 40% GEL 15 GM TUBE PO PRN (07:30)
[2019-11-02] MEDS ORDERED: GLUCOSE 10 TABS/TUBE PO PRN (07:30)
[2019-11-02] MEDS ORDERED: GLUCAGON FOR INJ 1 MG VIAL IM PRN (07:30)
[2019-11-02] MEDS ORDERED: DEXTROSE 50% 50 ML SYRINGE IV PRN (07:30)
[2019-11-02] MEDS ORDERED: CARBOHYDRATES FOR HYPOGLYCEMIA PO PRN (07:30)
[2019-11-02 07:51] LABS: Magnesium 2.3 mg/dl (1.8-2.4); Phosphorus 3.2 mg/dl (2.5-4.9)
[2019-11-02] MEDS: INSULIN ASPART 100 UNITS/ML 3 ML PEN SC SCH ×4 (08:08→20:27)
[2019-11-02] MEDS: INSULIN GLARGINE SOLOSTAR 100 UNITS/ML 3 ML PEN SC SCH ×2 (08:18→20:27)
[2019-11-02] MEDS: SODIUM CHLOR 0.45% + 20MEQ KCL 20 MEQ/1,000 ML BAG IV SCH ×2 (09:29→19:35)
--- NOTE | 2019-11-02 10:05 | Pharmacy Report ---
Pharmacy Glycemic Short Note 2 - Date of Service November 02, 2019 - Glycemic Short BSG Results (Last 24 hours): 11/01/19 11/01/19 11/01/19 09:59 11:03 12:01 Glucose POC Glucose 349 H* 290 H 250 H 11/01/19 11/01/19 11/01/19 12:57 12:58 13:57 Glucose 254 H POC Glucose 293 H 295 H 11/01/19 11/01/19 11/01/19 15:01 16:03 16:20 Glucose POC Glucose 225 H 168 H 157 H 11/01/19 11/01/19 11/01/19 17:04 18:06 19:02 Glucose POC Glucose 188 H 151 H 171 H 11/01/19 11/01/19 11/01/19 19:05 20:00 21:37 Glucose 134 H POC Glucose 127 H 112 H 11/01/19 11/01/19 11/02/19 22:30 23:27 00:37 Glucose POC Glucose 107 H 101 H 103 H 11/02/19 11/02/19 11/02/19 01:36 02:34 03:33 Glucose POC Glucose 94 106 H 113 H 11/02/19 11/02/19 11/02/19 04:34 05:36 05:52 Glucose 98 POC Glucose 100 H 105 H 11/02/19 07:33 Glucose POC Glucose 108 H OUTPATIENT ANTIDIABETIC REGIMEN: * Metformin 1gm PO BID * Ozempic SQ weekly * HbA1c: 11% (11/01/19) ASSESSMENT: 11/02/19: * Insulin drip was able to be turned off this morning. * Will continue to titrate SQ basal/bolus insulin. * Have initiated SQ insulin fairly aggressively d/t extremely high A1c and significant insulin needs while on insulin infusion. Patient is likely quite insulin resistant currently. Will cut back on insulin dosing as able. 11/01/19 * Ms Richards is a 64yo diabetic female, admitted with DKA and sepsis. * Patient's labs have resolved today, however, insulin drip continues at a fairly high rate (>4 units/hr) with BSGs steadily in the 250s. * Dextrose has been removed from IVF and goal range has been lowered. * Lantus was initiated this morning. Ideally, insulin drip will be appropriate to D/C by tomorrow morning. PLAN FOR INPATIENT GLYCEMIC CONTROL: * Hold outpatient oral diabetes medications * Basal insulin * Lantus 20 units SQ BID * Bolus insulin * NovoLog per scale ACHS or Q6hrs while NPO * Goal Range: Low 110 mg/dL - High 140 mg/dL * Correction Factor: 20 mg/dL/unit * Nutritional / Prandial insulin per carb ratio of 1 unit per 7 grams CHO consumed PLAN FOR DISCHARGE: * Patient's A1c (11.0%) indicates extremely poor glycemic control as an outpt. * Expect that patient will require adjustments to outpt regimen on discharge. * More to follow as insulin needs become more clear during admission.
--- NOTE | 2019-11-02 10:33 | Hospitalist Progress Note ---
Date of Service November 02, 2019 Assessment & Plan (1) Sepsis: (2) Acute UTI: -as per history and physical "This is a 64-year-old female with past medical history significant for type 2 diabetes, hyperlipidemia, diabetes mellitus with peripheral angiopathy, atrial septal defect, mitral valve disease, history of CVA, hypertension, degenerative disc disease, osteoarthritis involving multiple joints, factor V Leiden deficiency, long-term use of anticoagulant therapy, history of tobacco use disorder. 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 Lives with her , wheelchair bound. Comes because of not feeling well since last 2 days. She is having generalized body aches, low-grade fever for the last 2 days and she has some mild cough and some shortness of breath . Hx of smoking. Today, she tried to eat pizza and she vomited .In the ER and she was tachycardic [place] [address]. ABG was okay. Sugars were 377 with anion gap of 14, CO2 of 19, creatinine of 1.3. Lactate was 5 when she came in. With the fluid resuscitation, repeat lactate was 1.5. Urine was positive for nitrite and 4+ bacteria. Influenza A and B negative and COVID-19 PCR is negative. Chest x-ray, no acute process. The patient is somewhat ill appearing. Says she is not feeling good, but denies any headache, denies any blurred vision. No earache, no runny nose. Denies any sore throat. Denies any loss of sense of smell or taste. Denies any chest pain. Currently no shortness of breath. Currently, no nausea, no vomiting, no abdominal pain. Normal bowel and bladder movements. She says she has some mild burning micturition. No rash anywhere." -Severe sepsis secondary to urinary tract infection with tachycardia, temperature spike, elevated white count, feeling sick, and hyperglycemia. Urinalysis positive with elevated lactic acid of 5. lactic acid normalized with IV fluids and antibiotics -initially was on IV Zosyn and IV daptomycin -as of 11/02/2019 the admission blood cultures with no growth to date, the urine culture with pansensitive Escherichia coli. switch antibiotics to Ceftriaxone IV alone. monitor as inpatient Transaminitis, mild -follow the AST/ALT as patient receiving prn acetaminophen for fever or pain History of Hypertension -hold home dose lisinopril during this acute illness, monitor the blood pressures (3) DKA (diabetic ketoacidosis): Electrolyte abnormalities -diabetic ketoacidosis was managed with IV fluids and insulin drip on 11/01/2019 -currently on subcutaneous insulin with management of pharmacy glycemic consult -serum potassium, serum magnesium, and serum phosphorous at goal as of 11/02/2019 -Chext X ray ordered on 11/02/2019 because of multiple IV infusions on 11/01/2019 (4) Chronic anticoagulation: -History of factor V Leiden deficiency, on Coumadin. -History of atrial septal defect and mitral valve disease -admission INR subtherapeutic is 1.6 and then follow up lab as 1.5 -patient was initially given coumadin 5 mg with Lovenox as DVT prophylaxis. However, the INR is quickly at goal of between 2 to 3 (is 2.5 on 11/02/2019). No further Lovenox. because patient reports that patient was alternating only between 1mg and 1.5 mg coumadin daily doses, the patient will not have coumadin on 11/02/2019. Instead will monitor the INR by 11/03/2019 History of hemiplegia on the left side following the intracerebral hemorrhage in 2007 -Mostly wheelchair bound. -PT/OT evaluations Dyslipidemia -can resume home dose crestor starting on 11/03/2019 since no longer on IV daptomcyin, monitor the creatinine kinase Tobacco use -cosmetic counselor on smoking cessation Admission and Anticipated Discharge Date Admission Date: October 31, 2019 Subjective Patient seen and examined while sitting up in the wheelchair. Her at the bedside. Patient is much more active in appearance today. Patient denies any acute pain. She denies other symptoms. Patient on room air and no shortness of breath but mild crackles on lung exam. will order Chest X ray as patient had lot of IV fluids and medications on 11/01/2019 Discussed with patient and her the hospital course and plans Review of Systems Review of Systems: All systems reviewed & are unremarkable except as noted in Subjective Physical Exam Constitutional: cooperative Eyes: PERRL, conjunctivae normal, anicteric sclerae EOM intact bilaterally ENMT: external ear and nose normal, oropharynx normal Neck: normal visual inspection Respiratory: normal respiratory effort mild crackles on exam Cardiovascular: Rate/Rhythm: regular rate and regular rhythm Gastrointestinal (Abdomen): normal bowel sounds, soft, nontender, no hep atosplenomegaly Musculoskeletal: Head/Neck/Chest: normocephalic and head atraumatic Neurologic: PERRL, EOMI, accommodation nl, no face palsy, no dysarthria Psychiatric: A+Ox3, euthymic affect Results & Data Results & Data ([facility]) Vital Signs (Past 12 Hours) Vital Signs Temp Pulse Resp BP Pulse Ox 11/02/19 07:50 37.7 C H 92 H 18 112/65 92 11/02/19 03:50 37.2 C 97 H 18 115/68 93 11/02/19 00:32 37.1 C 94 H 18 114/71 99 (1) Sepsis Sepsis acute organ dysfunction status: unspecified Sepsis type: sepsis due to unspecified organism Qualified Code(s): A41.9 - Sepsis, unspecified organism
--- NOTE | 2019-11-02 11:52 | XRay Report ---
XR chest 1V portable HISTORY: 64 years-old Female follow if any lung infiltrates follow-up study in a patient with sepsis COMPARISON: Chest radiograph 10/31/2019 TECHNIQUE: Portable AP view of the chest FINDINGS: Cardiomediastinal and hilar silhouettes are within normal limits. No pneumothorax, pleural effusion, airspace consolidation or overt pulmonary edema. Mild chronic interstitial coarsening. Degenerative c hanges of the shoulders and spine. IMPRESSION: No acute process. ACT 112: Negative or not required by law. The above report was generated using voice recognition software. It may contain grammatical, syntax o r spelling errors. Electronically signed by: Chung Artis M.D. 11/02/2019 11:50 AM
[2019-11-02] MEDS ORDERED: cefTRIAXone SODIUM 2,000 MG in DEXTROSE 5% 50 ML IV SCH (18:00)
[2019-11-03] MEDS: SODIUM CHLOR 0.45% + 20MEQ KCL 20 MEQ/1,000 ML BAG IV SCH (05:11)
[2019-11-03 06:04] LABS: Basophils # (auto) 0.02 K/uL (0-0.2); Basophils % (auto) 0.3 %; Eosinophils # (auto) 0.17 K/uL (0-0.5); Eosinophils % (auto) 2.8 %; Hematocrit (blood only) 34.1 % (37-47); Hemoglobin 11.1 g/dL (12.0-16.0); Immature Granulocytes # (auto) 0.02 K/uL (0.00-0.02); Immature Granulocytes % (auto) 0.3 %; Lymphocytes # (auto) 1.62 K/uL (1.2-3.4); Lymphocytes % (auto) 26.4 %; Mean Corpuscular Hemoglobin 29.4 pg (25-34); Mean Corpuscular Hgb Conc 32.6 g/dL (32-36); Mean Corpuscular Volume 90.5 fL (80-100); Mean Platelet Volume 10.9 fL (7.4-10.4); Monocytes # (auto) 0.41 K/uL (0.11-0.59); Monocytes % (auto) 6.7 %; Neutrophils # (auto) 3.89 K/uL (1.4-6.5); Neutrophils % (auto) 63.5 %; Platelet Count 140 K/uL (130-400); RDW Coefficient of Variation 14.4 % (11.5-14.5); Red Blood Count 3.77 M/uL (4.2-5.4); White Blood Count 6.13 K/uL (4.8-10.8)
[2019-11-03 06:12] LABS: INR 3.2 (0.9-1.1); Prothrombin Time 31.9 Seconds (9.0-12.0)
[2019-11-03 06:29] LABS: Est GFR (African American) 66.4; Est GFR (Non-African American) 57.3; Potassium 3.9 mmol/L (3.5-5.1)
[2019-11-03 06:30] LABS: Albumin Level 2.1 gm/dl (3.4-5.0); BUN Creatinine Ratio 9.6 (10-20); Calcium 8.1 mg/dl (8.5-10.1); Creatinine Clr Calc Pharmacy 56.4 ml/min; Magnesium 2.3 mg/dl (1.8-2.4)
[2019-11-03 06:45] LABS: Albumin Globulin Ratio 0.5 (0.9-2); Bilirubin,Total 0.4 mg/dl (0.2-1); Globulin 4.2 gm/dl (2.5-4.0); Phosphorus 2.7 mg/dl (2.5-4.9); Total Protein 6.3 gm/dl (6.4-8.2)
[2019-11-03] MEDS: INSULIN ASPART 100 UNITS/ML 3 ML PEN SC SCH ×2 (07:50→12:03)
[2019-11-03] MEDS ORDERED: ROSUVASTATIN CALCIUM 20 MG TAB PO SCH (09:00)
[2019-11-03] MEDS: INSULIN GLARGINE SOLOSTAR 100 UNITS/ML 3 ML PEN SC SCH (09:06)
--- NOTE | 2019-11-03 13:11 | Hospitalist Progress Note ---
Date of Service November 03, 2019 Assessment & Plan (1) Sepsis: (2) Acute UTI: per Dr. Kashmir Roblero's notes (apply to assessment and plan below): -as per history and physical "This is a 64-year-old female with past medical history significant for type 2 diabetes, hyperlipidemia, diabetes mellitus with peripheral angiopathy, atrial septal defect, mitral valve disease, history of CVA, hypertension, degenerative disc disease, osteoarthritis involving multiple joints, factor V Leiden deficiency, long-term use of anticoagulant therapy, history of tobacco use disorder. 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 Lives with her , wheelchair bound. Comes because of not feeling well since last 2 days. She is having generalized body aches, low-grade fever for the last 2 days and she has some mild cough and some shortness of breath . Hx of smoking. Today, she tried to eat pizza and she vomited .In the ER and she was tachycardic [place] [address]. ABG was okay. Sugars were 377 with anion gap of 14, CO2 of 19, creatinine of 1.3. Lactate was 5 when she came in. With the fluid resuscitation, repeat lactate was 1.5. Urine was positive for nitrite and 4+ bacteria. Influenza A and B negative and COVID-19 PCR is negative. Chest x-ray, no acute process. The patient is somewhat ill appearing. Says she is not feeling good, but denies any headache, denies any blurred vision. No earache, no runny nose. Denies any sore throat. Denies any loss of sense of smell or taste. Denies any chest pain. Currently no shortness of breath. Currently, no nausea, no vomiting, no abdominal pain. Normal bowel and bladder movements. She says she has some mild burning micturition. No rash anywhere." -Severe sepsis secondary to urinary tract infection with tachycardia, temperature spike, elevated white count, feeling sick, and hyperglycemia. Urinalysis positive with elevated lactic acid of 5. lactic acid normalized with IV fluids and antibiotics -initially was on IV Zosyn and IV daptomycin -as of 11/02/2019 the admission blood cultures with no growth to date, the urine culture with pansensitive Escherichia coli. switch antibiotics to Ceftriaxone IV alone. monitor as inpatient - transition to Cefdinir 300mg BID x 7 days to complete 10 day antibiotic course ff up with PCP in 5-7 days Transaminitis, mild -follow the AST/ALT as patient receiving prn acetaminophen for fever or pain - on discharge day: AST 184, ALT 142, Alk Phos 166, T You 0.4 repeat LFTs on PCP ff up and monitor as outpatient Elevated CPK - renal function stable encouraged to drink plenty of water - repeat CPK and BUN/crea on ff up with PCP History of Hypertension - resume usual Lisinopril (3) DKA (diabetic ketoacidosis): Electrolyte abnormalities -diabetic ketoacidosis was managed with IV fluids and insulin drip on 11/01/2019 -given subcutaneous insulin with management of pharmacy glycemic consult - A1c 11% usually on metformin 1,000mg BID and Ozempic weekly however, on interview, patient apparently not administering Ozempic correctly - Glycemic Control Pharmacist recommendation: Lantus 25 units in AM continue Metformin 1000mg BID D/C Ozempic (patient comfortable with above plan) - ff up with PCP closely (4) Chronic anticoagulation: -History of factor V Leiden deficiency, on Coumadin. -History of atrial septal defect and mitral valve disease -admission INR subtherapeutic is 1.6 -INR on discharge 3.2 Hold coumadin until further advice by [facility] (care coordinated with [facility]) History of hemiplegia on the left side following the intracerebral hemorrhage in 2006 -Mostly wheelchair bound. -PT/OT evaluation: recommend d/c home Dyslipidemia -can resume home dose crestor starting on 11/03/2019 since no longer on IV daptomcyin, monitor the creatinine kinase Tobacco use -claims counsel on smoking cessation Admission and Anticipated Discharge Date Admission Date: October 31, 2019 Subjective ff up for UTI seen resting in bed, comfortable, in good spirits states she feels so much better strength is much better denies problems with urination, BM, nausea/vomiting denies chest pain, dizziness, palpitations no other symptoms states she is ready and would like to be discharged Review of Systems Review of Systems: All systems reviewed & are unremarkable except as noted in HPI & below Physical Exam Physical Exam: General- oriented x 3, not in distress, speaks in sentences with no effort or accessory muscle use Eyes- anicteric Neck- no JVD Lungs- clear breath sounds bilaterally, no rales/wheezes Heart- normal rate, regular rhythm; no murmurs Abdomen- normal bowel sounds, nondistended, soft, nontender Extremities- no pretibial edema, no calf tenderness Neuro- alert, oriented x 3; no gross focal neurologic deficits except LLE strength is 3/5 Skin- warm & dry Results & Data Results & Data ([facility]) Vital Signs (Past 12 Hours) Vital Signs Temp Pulse Pulse Pulse Resp BP Pulse Ox 11/03/19 10:50 36.7 C 85 19 121/74 96 11/03/19 07:20 93 H 11/03/19 07:13 36.4 C L 88 19 108/68 95 11/03/19 03:51 37 C 92 H 18 123/70 94 Laboratory Results Laboratory Results - last 24 hr 11/02/19 11/02/19 11/03/19 16:09 20:09 05:39 WBC RBC Hgb Hct MCV MCH MCHC RDW Std Deviation RDW Coeff of Nikki Plt Count MPV Immature Gran % (Auto) Neut % (Auto) Lymph % (Auto) [place] % (Auto) Eos % (Auto) Baso % (Auto) Neut # (Auto) Lymph # (Auto) [place] # (Auto) Eos # (Auto) Baso # (Auto) Immature Gran # (Auto) PT 31.9 H INR 3.2 H Sodium Potassium Chloride Carbon Dioxide Anion Gap BUN Creatinine Est Cr Clr Drug Dosing Est GFR ( Amer) Est GFR (Non-Af Amer) BUN/Creatinine Ratio Glucose POC Glucose 193 H 174 H Calcium Phosphorus Magnesium Total Bilirubin AST ALT Alkaline Phosphatase Total Creatine Kinase Total Protein Albumin Globulin Albumin/Globulin Ratio 11/03/19 11/03/19 11/03/19 05:39 05:39 07:30 WBC 6.13 RBC 3.77 L Hgb 11.1 L Hct 34.1 L MCV 90.5 MCH 29.4 MCHC 32.6 RDW Std Deviation 48.0 H RDW Coeff of Nikki 14.4 Plt Count 140 MPV 10.9 H Immature Gran % (Auto) 0.3 Neut % (Auto) 63.5 Lymph % (Auto) 26.4 [place] % (Auto) 6.7 Eos % (Auto) 2.8 Baso % (Auto) 0.3 Neut # (Auto) 3.89 Lymph # (Auto) 1.62 [place] # (Auto) 0.41 Eos # (Auto) 0.17 Baso # (Auto) 0.02 Immature Gran # (Auto) 0.02 PT INR Sodium 142 Potassium 3.9 Chloride 112 H Carbon Dioxide 22 Anion Gap 8.0 BUN 10 Creatinine 1.02 Est Cr Clr Drug Dosing 56.4 Est GFR ( Amer) 66.4 Est GFR (Non-Af Amer) 57.3 BUN/Creatinine Ratio 9.6 L Glucose 106 H POC Glucose 112 H Calcium 8.1 L Phosphorus 2.7 Magnesium 2.3 Total Bilirubin 0.4 AST 184 H ALT 142 H Alkaline Phosphatase 166 H Total Creatine Kinase 1744 H Total Protein 6.3 L Albumin 2.1 L Globulin 4.2 H Albumin/Globulin Ratio 0.5 L 11/03/19 11:27 WBC RBC Hgb Hct MCV MCH MCHC RDW Std Deviation RDW Coeff of Nikki Plt Count MPV Immature Gran % (Auto) Neut % (Auto) Lymph % (Auto) [place] % (Auto) Eos % (Auto) Baso % (Auto) Neut # (Auto) Lymph # (Auto) [place] # (Auto) Eos # (Auto) Baso # (Auto) Immature Gran # (Auto) PT INR Sodium Potassium Chloride Carbon Dioxide Anion Gap BUN Creatinine Est Cr Clr Drug Dosing Est GFR ( Amer) Est GFR (Non-Af Amer) BUN/Creatinine Ratio Glucose POC Glucose 149 H Calcium Phosphorus Magnesium Total Bilirubin AST ALT Alkaline Phosphatase Total Creatine Kinase Total Protein Albumin Globulin Albumin/Globulin Ratio (1) Sepsis Sepsis acute organ dysfunction status: unspecified Sepsis type: sepsis due to unspecified organism Qualified Code(s): A41.9 - Sepsis, unspecified organism
--- NOTE | 2019-11-03 13:35 | Pharmacy Report ---
Pharmacy Glycemic Short Note 2 - Date of Service November 03, 2019 - Glycemic Short BSG Results (Last 24 hours): 11/02/19 11/02/19 11/03/19 16:09 20:09 05:39 Glucose 106 H POC Glucose 193 H 174 H 11/03/19 11/03/19 07:30 11:27 Glucose POC Glucose 112 H 149 H OUTPATIENT ANTIDIABETIC REGIMEN: * Metformin 1gm PO BID * Ozempic SQ weekly * HbA1c: 11% (11/01/19) ASSESSMENT: 11/03/19: BSGs with good control over the past 24 hours (98 -193 mg/dL) with 40 units of lantus Prandial BSGs within range. Will continue current parameters 11/02/19: * Insulin drip was able to be turned off this morning. * Will continue to titrate SQ basal/bolus insulin. * Have initiated SQ insulin fairly aggressively d/t extremely high A1c and significant insulin needs while on insulin infusion. Patient is likely quite insulin resistant currently. Will cut back on insulin dosing as able. 11/01/19 * Ms Richards is a 64yo diabetic female, admitted with DKA and sepsis. * Patient's labs have resolved today, however, insulin drip continues at a fairly high rate (>4 units/hr) with BSGs steadily in the 250s. * Dextrose has been removed from IVF and goal range has been lowered. * Lantus was initiated this morning. Ideally, insulin drip will be appropriate to D/C by tomorrow morning. PLAN FOR INPATIENT GLYCEMIC CONTROL: * Hold outpatient oral diabetes medications * Basal insulin * Lantus 20 units SQ BID * Bolus insulin * NovoLog per scale ACHS or Q6hrs while NPO * Goal Range: Low 110 mg/dL - High 140 mg/dL * Correction Factor: 20 mg/dL/unit * Nutritional / Prandial insulin per carb ratio of 1 unit per 7 grams CHO consumed PLAN FOR DISCHARGE: Per [facility] In Recommendations (pharmacist recommendations in bold print): 1. A1c 11% - add once daily basal insulin (Glargine pen). I would recommend 25 units QAM to start 2. If she was not receiving the Ozempic prior to admit, hold off on restarting the Ozempic until seen by [facility] clinic, as dose will need reduced. 3. SMBG 2x/day- fasting and bedtime. or with any s/s of hypoglycemia 4. Mindful of food choices/portion sizes. 5. A1c > 9%- pt will need close follow-up post-discharge. Pt has appointment with [facility] clinic on 11/09 at 3:50pm.
--- NOTE | 2019-11-03 14:17 | Discharge Summary ---
Date of Service November 03, 2019 Admission HPI Per Admitting Provider CHIEF COMPLAINT: Severe sepsis. HISTORY OF PRESENT ILLNESS: This is a 64-year-old female with past medical history significant for type 2 diabetes, hyperlipidemia, diabetes mellitus with peripheral angiopathy, atrial septal defect, mitral valve disease, history of CVA, hypertension, degenerative disc disease, osteoarthritis involving multiple joints, factor V Leiden deficiency, long-term use of anticoagulant therapy, history of tobacco use disorder. 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 Lives with her , wheelchair bound. Comes because of not feeling well since last 2 days. She is having generalized body aches, low-grade fever for the last 2 days and she has some mild cough and some shortness of breath . Hx of smoking. Today, she tried to eat pizza and she vomited .In the ER and she was tachycardic [place] [address]. ABG was okay. Sugars were 377 with anion gap of 14, CO2 of 19, creatinine of 1.3. Lactate was 5 when she came in. With the fluid resuscitation, repeat lactate was 1.5. Urine was positive for nitrite and 4+ bacteria. Influenza A and B negative and COVID-19 PCR is negative. Chest x-ray, no acute process. The patient is somewhat ill appearing. Says she is not feeling good, but denies any headache, denies any blurred vision. No earache, no runny nose. Denies any sore throat. Denies any loss of sense of smell or taste. Denies any chest pain. Currently no shortness of breath. Currently, no nausea, no vomiting, no abdominal pain. Normal bowel and bladder movements. She says she has some mild burning micturition. No rash anywhere. Admission Exam Per Admitting Provider GENERAL: The patient is of moderate build, not in acute distress. VITAL SIGNS: T-max 39.4, pulse ranging from 110 to 98, respiratory rate 18, blood pressure 106/68, oxygen 93% on room air. HEENT: Pupils equal, round, reactive to light. Oral mucosa dry. NECK: No JVD, no neck masses seen. CARDIOVASCULAR: S1, S2 heard. Tachycardia. No murmurs. RESPIRATORY SYSTEM: Normal AP diameter. No accessory muscle use. No wheezing, no crackles. ABDOMEN: Soft, bowel sounds present, nontender. No distention. CENTRAL NERVOUS SYSTEM: Alert and oriented. No facial droop. Speech is clear. Left-sided weakness present. EXTREMITIES: No edema, no erythema. Principal Diagnosis SEVERE SEPSIS SECONDARY TO E. COLI UTI, WITH DIABETIC KETOACIDOSIS Discharge Exam General- oriented x 3, not in distress, speaks in sentences with no effort or accessory muscle use Eyes- anicteric Neck- no JVD Lungs- clear breath sounds bilaterally, no rales/wheezes Heart- normal rate, regular rhythm; no murmurs Abdomen- normal bowel sounds, nondistended, soft, nontender Extremities- no pretibial edema, no calf tenderness Neuro- alert, oriented x 3; no gross focal neurologic deficits except LLE strength is 3/5 Skin- warm & dry Discharge Data Allergies Allergy/AdvReac Type Severity Reaction Status Date / Time atorvastatin Allergy Unknown SEVERE Verified 10/31/19 21:12 MUSCLE PAIN Consultations 10/31/19 19:34 ED Decision to Admit Stat 10/31/19 21:51 Consult Case Management - Discharge Planning Routine Diabetes Follow up Diabetes Follow-up Needed for HgbA1c >9% Hospital Course (1) Sepsis: (2) Acute UTI: per Dr. Kashmir Roblero's notes (apply to assessment and plan below): -as per history and physical "This is a 64-year-old female with past medical history significant for type 2 diabetes, hyperlipidemia, diabetes mellitus with peripheral angiopathy, atrial septal defect, mitral valve disease, history of CVA, hypertension, degenerative disc disease, osteoarthritis involving multiple joints, factor V Leiden deficiency, long-term use of anticoagulant therapy, history of tobacco use disorder. 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 Lives with her , wheelchair bound. Comes because of not feeling well since last 2 days. She is having generalized body aches, low-grade fever for the last 2 days and she has some mild cough and some shortness of breath . Hx of smoking. Today, she tried to eat pizza and she vomited .In the ER and she was tachycardic [place] [address]. ABG was okay. Sugars were 377 with anion gap of 14, CO2 of 19, creatinine of 1.3. Lactate was 5 when she came in. With the fluid resuscitation, repeat lactate was 1.5. Urine was positive for nitrite and 4+ bacteria. Influenza A and B negative and COVID-19 PCR is negative. Chest x-ray, no acute process. The patient is somewhat ill siddharth earing. Says she is not feeling good, but denies any headache, denies any blurred vision. No earache, no runny nose. Denies any sore throat. Denies any loss of sense of smell or taste. Denies any chest pain. Currently no shortness of breath. Currently, no nausea, no vomiting, no abdominal pain. Normal bowel and bladder movements. She says she has some mild burning micturition. No rash anywhere." -Severe sepsis secondary to urinary tract infection with tachycardia, temperature spike, elevated white count, feeling sick, and hyperglycemia. Urinalysis positive with elevated lactic acid of 5. lactic acid normalized with IV fluids and antibiotics -initially was on IV Zosyn and IV daptomycin -as of 11/02/2019 the admission blood cultures with no growth to date, the urine culture with pansensitive Escherichia coli. switch antibiotics to Ceftriaxone IV alone. 11/04/2019 -Patient clinically improved significantly, afebrile - transition to Cefdinir 300mg BID x 7 days to complete 10 day antibiotic course Probiotics ordered ff up with PCP next week for DC instructions Transaminitis, mild -follow the AST/ALT as patient receiving prn acetaminophen for fever or pain - on discharge day: AST 184, ALT 142, Alk Phos 166, T You 0.4 repeat LFTs on PCP ff up and monitor as outpatient Elevated CPK - From daptomycin? - renal function stable encouraged to drink plenty of water - repeat CPK and BUN/crea on ff up with PCP Hypertension - resume usual Lisinopril (3) DKA (diabetic ketoacidosis): Electrolyte abnormalities -diabetic ketoacidosis was managed with IV fluids and insulin drip on 11/01/2019 -given subcutaneous insulin with management of pharmacy glycemic consult - A1c 11% usually on metformin 1,000mg BID and Ozempic weekly however, on interview, patient apparently not administering Ozempic correctly - Glycemic Control Pharmacist recommendation: Lantus 25 units in AM continue Metformin 1000mg BID D/C Ozempic (patient comfortable with above plan) - ff up with PCP closely Follow-up with [facility] clinic November 09 at 3:50 PM (4) Chronic anticoagulation: -History of factor V Leiden deficiency, on Coumadin. -History of atrial septal defect and mitral valve disease -admission INR subtherapeutic is 1.6 -INR on discharge 3.2 Hold coumadin until further advice by Coumadin Clinic after discharge (care coordinated with [facility] Clinic) History of hemiplegia on the left side following the intracerebral hemorrhage in 2006 -Mostly wheelchair bound. -PT/OT evaluation: recommend d/c home Dyslipidemia -can resume home dose crestor starting on 11/03/2019 since no longer on IV daptomcyin, monitor the creatinine kinase Tobacco use -addiction counselor on smoking cessation Total Time Total Time Spent Total Time Spent (In Minutes): 60 minutes Discharge Plan Discharge Items Patient Disposition: Home - Home Health Services Reason For Visit: ILLNESS Discharge Diagnosis: Severe sepsis Acute Urinary Tract Infection (Escherichia coli) DKA (diabetic ketoacidosis) Uncontrolled diabetes Activity: Per Instructions section Activity Comment: Resume activity gradually as tolerated Lifting: Wait until after follow-up appointment Bathing: No limitations Exercise/Sports: Wait until after follow-up appointment Driving/Machine Use: No Driving Non-emergency contact: Primary Care Provider Call non-emergency contact if: you have any medication questions, your symptoms worsen, your pain is not controlled, your pain is worsening, your pain is unusual for you, your pain is concerning for you and you have a fever Follow-up/Referrals: Arsenio Romero MD [Primary Care Provider] - 11/09/19 11:00 am (Date & Time 11/09/2019 11:00 AM Provider Laura Feng, Department [facility] ) Diet: Carb Consistent or DM2 and Heart Healthy Addtl Attending Provider Instructions: Please review your new medication list and follow instructions carefully. Continue medications include: Cefdinir-antibiotic for urinary tract infection Culturelle-probiotic to prevent diarrhea while on cefdinir Insulin Lantus-for diabetes/blood sugar control, to be taken in the morning with breakfast Check your blood sugar reading first before injecting Lantus, Do not administer insulin Lantus if you are blood sugar is below 130. Stop using Ozempic for now. Hold Coumadin today. The Coumadin clinic/[facility] pharmacist will be calling you tomorrow for advice regarding blood work and when to restart Coumadin. Check your blood sugar before breakfast and at bedtime. Record your blood sugar readings and bring your record to your primary care physician on follow-up visit. Drink plenty of water-6-8 glasses of water per day. Call primary care physician or return to the ER immediately if with recurrence of symptoms, including, Abdominal pain, fevers or chills, weakness, nausea or vomiting. Follow-up with primary care physician as outlined above. Follow-up with [facility] clinic at [place] for diabetes control on November 10, 2019 at 3:50 PM. Pending Studies at Discharge: Yes Studies:: Repeat blood work on follow-up with your primary care physician next week including: CPK, BUN/creatinine, liver function tests Stand-Alone Forms: My [facility] [employer], Smoking Cessation Medications and DC Order Prescriptions: New Lantus Solostar U-100 Insulin 100 unit/mL (3 mL) Insulin Pen 25 unit SC QAM Qty: 15 RF: 2 cefdinir 300 mg capsule 300 mg PO Q12H Qty: 14 RF: 0 Culturelle 10 billion cell capsule 1 cap PO DAILY Qty: 14 RF: 0 Continued lisinopril 20 mg tablet 20 mg PO QAM RF: 0 metformin 500 mg tablet extended release 24 hr 1,000 mg PO BID RF: 0 rosuvastatin 40 mg tablet 40 mg PO QAM RF: 0 Discontinued warfarin 3 mg tablet 3 mg PO UD RF: 0 Ozempic 0.25 mg or 0.5 mg(2 mg/1.5 mL) pen injector 0 mg SUBCUT FR RF: 0 Discharge Orders: Discharge Order (Routine); Ordered 11/03/19 Ordered By: Alex Stern Admission Data Admit Date/Time: 10/31/19 20:46 Attending Provider: Alex Stern Admit Provider: Suhas De Leon Primary Care Provider: Arsenio Romero Other Providers: Suhas De Leon ; Kashmir Roblero
== END 2019-11-03 16:47 | disposition home health service (06) | DRG 871 ==
LOC: ED 18:11 → 2S 20:46 → SUATTDRO 20:46 → 2S 21:27